=== PATIENT | female | born 1995 | race Two or more races ===

== ENCOUNTER 2021-09-21 22:57 | Emergency (ER) | payer OTHER, SELFPAY ==
[2021-09-22 00:27] VITALS: BP 118/69; PULSE 97; RESP 22; TEMP 37.2; O2SAT 100; BMI 31.8
[2021-09-22] MEDS: Acetaminophen 325 MG TABLET 975 MG PO (00:32)
[2021-09-22 00:40] LABS: Basophils Percent Auto 0.2 % (0-2); Eosinophils Absolute Auto 0.1 X10*3/uL (0.0-0.4); Eosinophils Percent Auto 2.6 % (0-4); Hematocrit 33.2 % (37.0-47.0); Hemoglobin 10.8 g/dl (12.0-16.0); Imm Gran Abs Auto 0.02 X10*3/uL (0.00-0.03); Imm Gran Pct Auto 0.4 % (0.0-0.4); Lymphocytes Absolute Auto 1.2 X10*3/uL (1.2-4.9); MANUAL DIFF FLAG NO; Mean Corpuscular HGB Conc 32.5 g/dl (31.0-35.0); Mean Corpuscular Volume 73.8 fL (80.0-98.0); Mean Platelet Volume 8.5 fL (9.4-12.3); Monocytes Absolute Auto 0.6 X10*3/uL (0.1-1.2); Monocytes Percent Auto 10.1 % (2-11); Neutrophils Absolute Auto 3.5 x10*3/uL (2.0-8.3); Neutrophils Percent Auto 64.7 % (45-73); Platelet Count 261 X10*3/uL (160-400); White Blood Count 5.5 X10*3/uL (4.8-10.8)
[2021-09-22 01:01] LABS: Alanine Aminotransferase 16 U/L (0-31); Albumin Level 3.8 g/dL (3.5-5.0); Alkaline Phosphatase 80 U/L (39-117); Anion Gap 11 (12-20); Aspartate Amino Transferase 24 U/L (5-31); Bilirubin Total 0.2 mg/dL (0.0-1.0); Blood Urea Nitrogen 8 mg/dL (9-16); Calcium 8.9 mg/dL (8.4-10.2); Carbon Dioxide 23 mmol/L (22-29); Chloride 107 mmol/L (96-108); Creatinine Clr Calc Pharmacy 121.6; Estimated Glomerular Filt Rate > 60; Glucose Random 97 mg/dL (60-115); Sodium 137 mmol/L (135-145); Total Protein 7.1 g/dL (6.5-8.0)
[2021-09-22 02:29] VITALS: BP 116/77; PULSE 104; RESP 20; TEMP 36.9; O2SAT 99
--- NOTE | 2021-09-22 04:02 | ED.DENTAL ---
HPI - Dental/Oral General Chief complaint: Dental/Oral Stated complaint: Headache/Earache Time Seen by Provider: 09/22/21 03:00 Source: patient Mode of arrival: ambulatory History of Present Illness HPI Narrative: 26-year-old female, 10 weeks who presents with left upper and lower dental caries with infection and was recently seen at the Dental ER yesterday and was started on amoxicillin. However, patient states that she continues to have significant pain which she has been unable to control with [id number] Tylenol. Teeth map: 1. 2. Related Data Allergies Allergy/AdvReac Type Severity Reaction Status Date / Time No Known Allergies Allergy Verified 09/22/21 00:25 Review of Systems Review of Systems: Pertinent positives and negatives as stated in HPI 10 point review of systems is otherwise negative. PMFSH Past Medical History Source: nursing notes reviewed Social History Social History Advance Directives: No Advance Directives Information Provided: No Physical Exam Vital Signs: Vital Signs: Last Vital Signs Temp 98.4 F 09/22/21 02:29 Pulse 104 H 09/22/21 02:29 Resp 20 09/22/21 02:29 BP 116/77 09/22/21 02:29 Pulse Ox 99 09/22/21 02:29 O2 Del Method 09/22/21 02:29 BMI result Body Mass Index 31.8 VITAL SIGNS: Reviewed. GENERAL: Well developed, well nourished, in no acute distress. HEAD: Normocephalic/atraumatic EYES: PERRLA, EOMI EARS: Ext canals without abnormality OROPHARYNX: no oral lesions noted, posterior pharynx clear, dental caries noted mild swelling at the left lower angle of the jaw without over riding erythema or induration, no trismus NECK: Supple, no adenopathy LUNGS: Normal breath sounds. No adventitious sounds or accessory muscle use. SpO2<99> CARDIOVASCULAR: Regular rate and rhythm without noted murmurs ABDOMEN: Soft, non-tender, non-distended with bowel sounds. NEUROLOGIC: Alert and oriented x 4. Strength and sensation to light touch were grossly intact x 4. Course Course Course Narrative: 26-year-old female with history and clinical presentation consistent with dental infection and pain. Placed in the infra and superior alveolar block with significant 6 acid patient is currently with good pain control, encouraged to continue with her antibiotics and discharged home in stable condition. MDM - Dental/Oral Lab Data Result diagrams: 09/22/21 00:34 09/22/21 00:34 Labs: Lab Results 09/22/21 09/22/21 Range/Units 00:34 00:34 WBC 5.5 (4.8-10.8) X10*3/uL RBC 4.50 (4.20-5.50) X10*6/uL Hgb 10.8 L (12.0-16.0) g/dl Hct 33.2 L (37.0-47.0) % MCV 73.8 L (80.0-98.0) fL MCH 24.0 L (27.0-33.0) pg MCHC 32.5 (31.0-35.0) g/dl RDW 17.0 H (11.0-16.0) % Plt Count 261 (160-400) X10*3/uL MPV 8.5 L (9.4-12.3) fL Immature Gran % (Auto) 0.4 (0.0-0.4) % Neut % (Auto) 64.7 (45-73) % Lymph % (Auto) 22.0 (20-40) % [place] % (Auto) 10.1 (2-11) % Eos % (Auto) 2.6 (0-4) % Baso % (Auto) 0.2 (0-2) % Lymph # (Auto) 1.2 (1.2-4.9) X10*3/uL [place] # (Auto) 0.6 (0.1-1.2) X10*3/uL Eos # (Auto) 0.1 (0.0-0.4) X10*3/uL Baso # (Auto) 0.0 (0.0-0.2) X10*3/uL Abs Immat Gran (auto) 0.02 (0.00-0.03) X10*3/uL Absolute Neuts (auto) 3.5 (2.0-8.3) x10*3/uL Absolute Nucleated RBC 0.000 (0.0-0.012) X10*3/uL Nucleated RBC % (auto) 0.0 (0.0-0.2) /100WBC Sodium 137 (135-145) mmol/L Potassium 4.0 (3.3-5.1) mmol/L Chloride 107 (96-108) mmol/L Carbon Dioxide 23 (22-29) mmol/L Anion Gap 11 L (12-20) BUN 8 L (9-16) mg/dL Creatinine 0.67 (0.5-1.4) mg/dL Estim Creat Clear Calc 121.6 Estimated GFR > 60 Random Glucose 97 (60-115) mg/dL Calcium 8.9 (8.4-10.2) mg/dL Total Bilirubin 0.2 (0.0-1.0) mg/dL AST 24 (5-31) U/L ALT 16 (0-31) U/L Alkaline Phosphatase 80 (39-117) U/L Total Protein 7.1 (6.5-8.0) g/dL Albumin 3.8 (3.5-5.0) g/dL Beta HCG, Quant [id number] mIU/mL Procedures Nerve Block Nerve Block 1: Time out performed: No Local Anesthetic: bupivacaine 0.25% Amount of anesthesia used (mL): 1 Side: left Nerve Blocks: other Intraoral Nerve Block: superior alveolar Procedure Successful: Yes Patient Tolerated Procedure: well Complications: none Nerve Block 2: Time out performed: No Local Anesthetic: bupivacaine 0.25% Amount of anesthesia used (mL): 1 Side: left Intraoral Nerve Block: inferior alveolar Procedure Successful: Yes Patient Tolerated Procedure: well Complications: none Discharge Plan Discharge Clinical Impression: Toothache, Dental caries, Dental infection Patient Disposition: Home, Self-Care Instructions: Dental Abscess (ED), Toothache (ED) Additional Instructions: 1. Resume all home medications as prescribed, to include vitamins. 2. Tylenol 1000 mg, orally, every 6 hours as needed for pain control. Do not exceed 4000 mg within 24 hours. 3. Complete the entire course of antibiotics as prescribed. 4. Additionally, consider using ice packs to unexposed skin for additional symptom relief. Return to the ER for worsening symptoms.
[2021-09-22 04:15] VITALS: BP 120/70; PULSE 99; RESP 14; TEMP 36.8; O2SAT 98
== END 2021-09-22 04:21 | disposition home or self-care (01) ==
PROVIDERS: Emergency Provider Student in an Organized Health Care Education/Training Program
DX: O26.91 Pregnancy related conditions, unspecified, first trimester (principal); K02.9 Dental caries, unspecified; Z3A.10 10 weeks gestation of pregnancy
CPT/HCPCS: 36415; 80053; 84702; 85025; 99284

== ENCOUNTER 2023-08-02 13:24 | Emergency (ER) | payer SELFPAY ==
[2023-08-02 13:27] VITALS: BP 126/88; PULSE 109; RESP 19; TEMP 36.6; O2SAT 98; BMI 30.7
--- NOTE | 2023-08-02 13:29 | ED_ITS ---
HPI - Dental/Oral General Chief complaint: General Medical Stated complaint: face swelling Time Seen by Provider: 08/02/23 20:50 Source: patient, RN notes reviewed and old records reviewed Mode of arrival: ambulatory Limitations: no limitations History of Present Illness HPI Narrative: 28-year-old female who denies any past medical history presents for evaluation of left lower facial swelling. Patient reports symptoms started 2 days ago. She went to the dentist yesterday and was told that she had an infection. She was started on amoxicillin She reports that she has not taken 4 doses and her symptoms seem worse She reports worsening left lower facial swelling She reports pain to the area Denies any fevers, chills, cough, shortness of breath No difficulty breathing or swallowing She denies any neck pain or swelling The patient notes that she is currently Related Data Previous Rx's ?Medication ?Instructions ?Recorded amoxicillin 875 mg-potassium 1 tab PO BID #14 tabs 08/02/23 clavulanate 125 mg tablet Allergies Allergy/AdvReac Type Severity Reaction Status Date / Time No Known Allergies Allergy Verified 08/02/23 13:29 Review of Systems 2 Constitutional: Constitutional: Denies body ache(s), Denies chills and Denies fever(s) Eyes: Eyes: Denies blurry vision ENT: Reports mouth pain, Denies sore throat and Denies throat swelling Cardiovascular: Cardiovascular: Denies chest pain and Denies dyspnea Respiratory: Respiratory: Denies cough and Denies dyspnea Gastrointestinal: Gastrointestinal: Denies abdominal pain, Denies nausea and Denies vomiting Musculoskeletal: Musculoskeletal: Denies back pain Integumentary/Breasts: Skin/Breast: Denies rash Allergic/Immunologic: Allergic/Immunologic: Denies throat swelling [facility] Social History Social History Advance Directives: No Advance Directives Information Provided: No Physical Exam 2 Vital Signs: Vital Signs: Last Vital Signs Temp 98.3 F 08/02/23 21:44 Pulse 99 08/02/23 21:44 Resp 17 08/02/23 21:44 BP 111/73 08/02/23 21:44 Pulse Ox 99 08/02/23 21:44 O2 Del Method Room Air 08/02/23 21:44 BMI result Body Mass Index 30.7 Const: General: healthy appearing, comfortable, no acute distress, alert and awake Nutritional Appearance: well nourished Orientation/consciousness: p atient oriented x3 HEENT: Other: There is left lower facial edema. There is no significant erythema to the skin. The 1st left lower molar had some gingival erythema and a small area of fluctuance to the gingiva. No retropharyngeal edema Head: Yes normocephalic and Yes atraumatic Eyes: Eyelids: Yes eyelids normal Conjunctivae: conjunctivae normal S clerae: sclerae normal Corneas: corneas normal Pupils: Equal, round and reactive pupils present EOM: EOMs intact bilaterally Neck: Neck: Yes full ROM Resp: Effort & Inspection: normal respiratory effort, able to speak in complete sentences and not labored GI: Inspection: No distended Palpation (GI): Soft to palpation, not firm, nontender, no guarding and not rigid Skin: General skin exam: elasticity normal Neuro: General: patient oriented x3 Cranial nerves: Yes Equal, round and reactive pupils present and Yes Bilaterally intact EOM present Cognition (Neuro): normal cognition Course Course Course Narrative: This is a rapid medical exam. Deferred additional HPI, ROS, PE to primary provider. 28yo female with no known medical history here with left lower facial swelling/dental pain despite taking 3 doses of amoxicillin. She feels it is worsening. May need CT imaging. will obtain labs. CAROL Hu APRN Medications Administered Discontinued Medications Generic Name Dose Route Start Last Admin Trade Name Freq PRN Reason Stop Dose Admin Acetaminophen 975 mg 08/02/23 16:05 08/02/23 16:07 Acetaminophen 325 Mg Tablet PO 08/02/23 16:06 975 mg ONCE ONE Administration Lidocaine HCl 2 ml 08/02/23 21:03 08/02/23 22:07 Lidocaine Hcl 1 % Mpf 2 Ml Vial INFILTRATI 08/02/23 21:04 2 ml ONCE ONE Administration Medical Decision Making Medical Decision Making [facility] Narrative: [age] old female presents for evaluation of facial swelling and dental pain. She has been on amoxicillin for 4 doses. She has what appears to be a very small dental abscess. Will attempt needle aspiration of this. He can transition the patient to Augmentin going forward. Differential Diagnosis Differential Diagnoses: The differential diagnosis associated with the presentation includes Facial swelling Dental abscess Dental infection Dental caries Lab Data 08/02/23 13:49 08/02/23 13:49 Labs: Lab Results 08/02/23 Range/Units 13:49 WBC 10.3 (4.8-10.8) X10*3/uL RBC 4.59 (4.20-5.50) X10*6/uL Hgb 12.0 (12.0-16.0) g/dl Hct 36.5 L (37.0-47.0) % MCV 79.5 L (80.0-98.0) fL MCH 26.1 L (27.0-33.0) pg MCHC 32.9 (31.0-35.0) g/dl RDW 13.2 (11.0-16.0) % Plt Count 296 (160-400) X10*3/uL MPV 8.5 L (9.4-12.3) fL Immature Gran % (Auto) 0.3 (0.0-0.4) % Neut % (Auto) 77.9 H (45-73) % Lymph % (Auto) 13.6 L (20-40) % [place] % (Auto) 6.4 (2-11) % Eos % (Auto) 1.5 (0-4) % Baso % (Auto) 0.3 (0-2) % Lymph # (Auto) 1.4 (1.2-4.9) X10*3/uL [place] # (Auto) 0.7 (0.1-1.2) X10*3/uL Eos # (Auto) 0.2 (0.0-0.4) X10*3/uL Baso # (Auto) 0.0 (0.0-0.2) X10*3/uL Abs Immat Gran (auto) 0.03 (0.00-0.03) X10*3/uL Absolute Neuts (auto) 8.1 (2.0-8.3) x10*3/uL Absolute Nucleated RBC 0.000 (0.0-0.012) X10*3/uL Nucleated RBC % (auto) 0.0 (0.0-0.2) /100WBC Sodium 137 (135-145) mmol/L Potassium 4.1 (3.3-5.1) mmol/L Chloride 103 (96-108) mmol/L Carbon Dioxide 24 (22-29) mmol/L Anion Gap 14 (12-20) BUN 9 (9-16) mg/dL Creatinine 0.77 (0.5-1.4) mg/dL Estim Creat Clear Calc 102.1 Estimated GFR > 60 Random Glucose 81 (60-115) mg/dL Calcium 8.8 (8.4-10.2) mg/dL Beta HCG, Quant < 2 mIU/mL Procedures Abscess I/D Site: other (Left lower dental) Side (if applicable): left Local Anesthetic: lidocaine 1% Amount of anesthesia used (mL): 1 Technique: needle aspiration Amount of fluid expressed (mL): 0.5 Sent for culture/gram staining?: No Discharge Plan Discharge Clinical Impression: Left facial swelling, Dental infection Patient Disposition: Home, Self-Care Instructions: Dental Abscess (ED) Additional Instructions: Apply warm compresses to the swollen area every 2 hours for 10 minutes. Stop taking the amoxicillin and take Augmentin twice daily for 1 week Follow-up with your dentist Prescriptions: New amoxicillin-pot clavulanate 875-125 mg tablet 1 tab PO BID Qty: 14 0RF Print Language: Maltese
[2023-08-02 13:54] LABS: MANUAL DIFF FLAG NO
[2023-08-02 13:55] LABS: Basophils Percent Auto 0.3 % (0-2); Eosinophils Absolute Auto 0.2 X10*3/uL (0.0-0.4); Eosinophils Percent Auto 1.5 % (0-4); Hematocrit 36.5 % (37.0-47.0); Imm Gran Abs Auto 0.03 X10*3/uL (0.00-0.03); Imm Gran Pct Auto 0.3 % (0.0-0.4); Lymphocytes Absolute Auto 1.4 X10*3/uL (1.2-4.9); Lymphocytes Percent Auto 13.6 % (20-40); Mean Corpuscular HGB Conc 32.9 g/dl (31.0-35.0); Mean Corpuscular Hemoglobin 26.1 pg (27.0-33.0); Mean Corpuscular Volume 79.5 fL (80.0-98.0); Mean Platelet Volume 8.5 fL (9.4-12.3); Monocytes Absolute Auto 0.7 X10*3/uL (0.1-1.2); Monocytes Percent Auto 6.4 % (2-11); Neutrophils Absolute Auto 8.1 x10*3/uL (2.0-8.3); Neutrophils Percent Auto 77.9 % (45-73); Platelet Count 296 X10*3/uL (160-400); Red Blood Count 4.59 X10*6/uL (4.20-5.50); Red Cell Distribution Width 13.2 % (11.0-16.0); White Blood Count 10.3 X10*3/uL (4.8-10.8)
[2023-08-02 14:28] LABS: Anion Gap 14 (12-20); Blood Urea Nitrogen 9 mg/dL (9-16); Calcium 8.8 mg/dL (8.4-10.2); Carbon Dioxide 24 mmol/L (22-29); Chloride 103 mmol/L (96-108); Creatinine Clr Calc Pharmacy 102.1; Estimated Glomerular Filt Rate > 60; Glucose Random 81 mg/dL (60-115); Potassium 4.1 mmol/L (3.3-5.1); Sodium 137 mmol/L (135-145)
[2023-08-02 14:32] LABS: HCG Quantitative < 2 mIU/mL
[2023-08-02 16:05] VITALS: BP 125/67; PULSE 108; RESP 20; TEMP 37.2; O2SAT 98
[2023-08-02] MEDS: Acetaminophen 325 MG TABLET 975 MG PO (16:07)
[2023-08-02 21:44] VITALS: BP 111/73; PULSE 99; RESP 17; TEMP 36.8; O2SAT 99
[2023-08-02] MEDS: Lidocaine HCl 1 % MPF 2 ML VIAL INFILTRATI (22:07)
[2023-08-02] MEDS: Amoxicillin/Potassium Clav 875 MG TABLET PO (22:23)
[2023-08-02 22:31] VITALS: BP 111/73; PULSE 99; RESP 17; TEMP 36.8; O2SAT 99
== END 2023-08-02 22:31 | disposition home or self-care (01) ==
PROVIDERS: Nurse Practitioner Family; Emergency Provider Internal Medicine
DX: K04.7 Periapical abscess without sinus (principal); K08.89 Other specified disorders of teeth and supporting structures; L53.8 Other specified erythematous conditions
CPT/HCPCS: 36415; 41800; 80048; 84702; 85025; 99283; 99284

== ENCOUNTER 2024-09-27 10:11 | Emergency (ER) | payer MEDICAID, SELFPAY ==
--- NOTE | ~2024-09-27 | CT_ITS ---
EXAMINATION: CT ABDOMEN AND PELVIS WITH CONTRAST CLINICAL INFORMATION: Severe rectal pain COMPARISON: None available. TECHNIQUE: Multidetector volumetric images were obtained from the superior aspect of the liver through the pubic symphysis following administration 85 mL of Omnipaque 350 intravenous contrast. Sagittal and coronal reformatted images were obtained on the technologist's workstation. Oral contrast: No This CT examination was performed using dose optimization techniques as appropriate, variously including the following: *Automated exposure control *Adjustment of mA and/or kV according to patient size (this includes techniques or standardized protocols for targeted exams where dose is matched to indication/reason for exam; i.e. extremities or head) *Use of iterative reconstruction technique DLP: 666 mGy centimeter. FINDINGS: LUNG BASES: No acute airspace disease. LIVER, GALLBLADDER, AND BILIARY TREE: Liver measures 18 cm. Focal fatty infiltration adjacent to the falciform ligament. Portal veins, hepatic veins and intrahepatic portion of the IVC are patent. Gallbladder is contracted. No pericholecystic fluid collection or gallbladder wall thickening. No intrahepatic or extrahepatic biliary ductal dilatation. PANCREAS: No focal mass. No peripancreatic fluid collection. No main pancreatic ductal dilatation. SPLEEN: 10 cm. No focal mass. ADRENAL GLANDS: No nodular lesions. KIDNEYS AND URETERS: No hydronephrosis. No gross nephrolithiasis. No focal mass. Normal enhancement pattern of the renal parenchyma.. BLADDER: Fluid-filled. GASTROINTESTINAL TRACT: There is some intestinal wall thickening involving mostly the large intestine and to a lesser extent segmental loops of small bowel with gas and fluid-filled mildly prominent proximal small bowel loops. No pneumatosis intestinalis. Appendix is normal. No fluid collections, peritoneal cavity. No pneumoperitoneum. No ascites. No intestinal obstruction pattern. ABDOMINAL WALL: Fat-containing umbilical hernia, small with diastases abdominal rectus muscles in the periumbilical region. LYMPH NODES: Prominent mesenteric and retroperitoneum. VASCULAR: No aneurysm or dissection, abdominal aorta. PELVIC VISCERA: 3 cm fluid density lesion right adnexa. OSSEOUS STRUCTURES: No acute fracture or listhesis. Spondylosis L5-S1. Spina bifida occulta S1. Probable bony island in the sacrum. CT/CT abdomen pelvis w IV con IMPRESSION: Concerning enterocolitis without intestinal obstruction pattern. Inflammatory bowel disease cannot be entirely excluded. Hepatomegaly. Fat-containing hernia. 3 cm cystic lesion, right adnexa. Fleischner guidelines were followed. Electronically signed by: Alphonso Rene MD 09/27/2024 02:34 PM EDT RP
[2024-09-27 10:25] VITALS: BP 116/80; PULSE 118; RESP 16; TEMP 36; O2SAT 99; BMI 24.9
[2024-09-27 11:06] LABS: Hematocrit 34.7 % (37.0-47.0); Hemoglobin 10.2 g/dl (12.0-16.0); Mean Corpuscular HGB Conc 29.4 g/dl (31.0-35.0); Mean Corpuscular Hemoglobin 19.8 pg (27.0-33.0); Mean Corpuscular Volume 67.2 fL (80.0-98.0); NRBC Abs Auto 0.000 X10*3/uL (0.0-0.012); NRBC Pct Auto 0.0 /100WBC (0.0-0.2); Platelet Count 425 X10*3/uL (160-400); Red Blood Count 5.16 X10*6/uL (4.20-5.50); White Blood Count 8.2 X10*3/uL (4.8-10.8)
[2024-09-27 11:20] LABS: Alanine Aminotransferase 8 U/L (0-31); Albumin Level 4.2 g/dL (3.5-5.0); Alkaline Phosphatase 104 U/L (39-117); Anion Gap 13 (12-20); Aspartate Amino Transferase 22 U/L (5-31); Blood Urea Nitrogen 12 mg/dL (9-16); Calcium 9.8 mg/dL (8.4-10.2); Carbon Dioxide 25 mmol/L (22-29); Chloride 103 mmol/L (96-108); Creatinine Clr Calc Pharmacy 85.4; Estimated Glomerular Filt Rate > 60; Magnesium 2.2 mg/dL (1.6-2.6); Potassium 4.4 mmol/L (3.3-5.1); Sodium 137 mmol/L (135-145); Total Protein 8.4 g/dL (6.5-8.0)
[2024-09-27 11:32] LABS: Band Neutrophils Percent 9 % (3-5); Lymphocytes Absolute Manual 1.5 X10*3/uL (1.2-4.9); Lymphocytes Percent Manual 18 % (20-40); Monocytes Absolute Manual 0.4 X10*3/uL (0.1-1.2); Monocytes Percent Manual 5 % (2-11); Neutrophils Absolute Manual 6.3 X10*3/uL (2.0-8.3); Neutrophils Percent Manual 68 % (45-73)
[2024-09-27 11:33] LABS: Acanthocytes 1+ (0-2) /OIF; Microcytosis 1+ (5-14) /OIF; Ovalocytes 1+ (5-14) /OIF; RBC Morphology NOTED
[2024-09-27 11:38] LABS: Dohle Bodies PRESENT
--- NOTE | 2024-09-27 11:56 | ED_ITS ---
HPI - General Adult General Chief complaint: General Medical Stated complaint: rectum pain Time Seen by Provider: 09/27/24 13:01 Source: patient and family Mode of arrival: ambulatory Limitations: no limitations History of Present Illness ED Provider: YAZMIN MUKHERJEE narrative: 29 yo female who notes she has not had a formed stool in about 8 months she was just treated with levofloxacin for + E. Coli colitis at [facility] [place] on 09/09-09/11. She states she has been told by her PCP possible IBD though no prior colonoscopy she has an emergent colonoscopy this . She has known hemorrhoids and has intermittent rectal bleeding that has no changed. She has no fevers but came to our ED today with c/o severe rectal pain with bowel movements. She notes she always has loose stools. She feels like there are razors in her rectum and it goes down her left leg. preparation H is not helping MD complaint: rectal pain Onset (ago): week(s) (1) Location: buttocks Radiation: non-radiation Severity: severe Quality: stabbing Pain Consistency: intermittent Relieving factors: none Exacerbating factors: other (bowel movement) Associated symptoms: denies other symptoms Treatments prior to arrival: none Related Data Previous Rx's ?Medication ?Instructions ?Recorded amoxicillin 875 mg-potassium 1 tab PO BID #14 tabs clavulanate 125 mg tablet levofloxacin 750 mg tablet 750 mg PO DAILY #7 tabs lidocaine HCl 2 % mucosal jelly 1 appl topical BID PRN pain #30 mL 09/27/24 lorazepam 0.5 mg tablet (Ativan) 0.5 mg PO BID PRN spa sm #7 tabs 09/27/24 metronidazole 500 mg tablet 500 mg PO BID 7 days #14 t abs 09/27/24 Allergies Allergy/AdvReac Type Severity Reaction Status Date / Time No Known Allergies Allergy Verified 09/27/24 10:28 Review of Systems 2 Review of Systems: Constitutional : No Weight loss, No Fever, No Chills ENT/Mouth : No sore throat, No Rhinorrhea Eyes: No Swelling, No Redness Cardiovascular : No Chest Pain, No SOB, NoEdema Respiratory : No Cough, No Sputum, No Wheezing Gastrointestinal : Positive Nausea, no Vomiting, positive Diarrhea, positive abdominal Pain, No Hematochezia, No Melena Genitourinary : No Dysuria, No Urinary Frequency, No Hematuria, No Urgency Musculoskeletal : No joint pain, No Myalgias, No Joint Swelling Skin : No Skin Lesions, No rash Neuro : No Weakness, No Numbness, No Dizziness, No Headache All other systems reviewed and are negative. [facility] Past Medical History Attestation statement: The following information was validated with the patient. Source: old records reviewed Medical History (Updated 09/27/24 @ 15:57 by Delicia Richter DO) Colitis Social History Social History (Updated 09/27/24 @ 14:05 by Delicia Richter DO) Patient Tobacco Use Status: Never used Tobacco Smoked in Last 30 Days: No Use of substances other than those prescribed or required for medical reasons: No Advance Directives: No Advance Directives Information Provided: Yes Do you have a plan to hurt others: No Plan Patient : Yes Physical Exam ED Vital Signs: Vital Signs - 24 hr 09/27/24 10:25 09/27/24 13:29 Temperature 96.8 F Pulse Rate 118 H 113 H Respiratory Rate 16 16 Blood Pressure 116/80 109/69 Pulse Oximetry 99 99 Oxygen Delivery Method Room Air Room Air BMI result Body Mass Index 24.9 Appearance: Alert. Oriented X3. No acute distress. Eyes: Pupils equal, round and reactive to light. ENT: Pharynx normal. Neck: Normal inspection. Neck supple. CVS: Normal heart rate and rhythm. Pulses normal. Respiratory: No respiratory distress. Breath sounds normal. Abdomen: Soft and nontender. Rectal: very tight sphincter - ext non thrombosed bleeding hemorrhoids very ttp no friable mucosa or redness. Skin: Skin warm and dry. Normal skin color. Extremities: No lower extremity edema. Neuro: Oriented X 3. No motor deficit. No sensory deficit. CN2-12 intact Course Course Course Narrative: This is a Rapid Medical Examination (RME) performed by Kj Albright PA-C in triage. Full HPI, ROS, assessment and treatment plan per primary provider in the Main ED. Hx: 29 yo F here for evacl of diarrhea w/ blood since March. hx of internal and exertnal hemorrrhoids, having inc rectal pain w/ BMs. afraied to pass BMs d/t this. [facility] Plan: labs, OBS Medications Administered Discontinued Medications Generic Name Dose Route Start Last Admin Trade Name Freq PRN Reason Stop Dose Admin Acetaminophen 650 mg 09/27/24 10:30 09/27/24 10:34 Acetaminophen 325 Mg Tablet PO 09/27/24 10:31 650 mg ONCE ONE Administration Iohexol 100 ml 09/27/24 14:20 09/27/24 14:20 Iohexol 350 Mg/Ml 100 Ml Infus..Btl IV 09/27/24 14:21 85 ml ONCE ONE Administration Lorazepam 1 mg 09/27/24 13:29 09/27/24 14:07 Lorazepam 1 Mg Tablet PO 09/27/24 13:30 1 mg ONCE ONE Administration Medical Decision Making Medical Decision Making MDM Narrative: 29 yo female with recent E. Coli colitis s/p levofloxacin end of August schedule for colonoscopy this . At this time the patient now c/o severe rectal pain - no abscess noted. At this time the patient will need ativan and CT scan for perirectal mass, fissure is also possible, mass. Differential Diagnosis Differential Diagnoses: The differential diagnosis associated with the presentation includes fissure, spasm, mass Admission/Observation Consideration of admission/observation: Escalation of care including admission/observation considered spoke to budget consultant Dr. Hsu patient has no abdominal pain on exam does have some bands and persistent enterocolitis - at this time she is going to notify her GI doctor tomorrow and Dr. Hsu recommends levofloxacin and flagyl. Patient is aware I spoke to her and her mother about this. Consult Healthcare Provider Management of the patient was discussed with: Commonwealth Attorney Dr. Hsu Lab Data [facility] Lab Attestation statement: I reviewed the patient's lab results. CRP elevated, no wbc count, has some anemia - patient has a bandemia as well noted on CBC 09/27/24 10:59 09/27/24 10:59 Labs: Lab Results 09/27/24 09/27/24 Range/Units 10:59 13:37 WBC 8.2 (4.8-10.8) X10*3/uL RBC 5.16 (4.20-5.50) X10*6/uL Hgb 10.2 L (12.0-16.0) g/dl Hct 34.7 L (37.0-47.0) % MCV 67.2 L (80.0-98.0) fL MCH 19.8 L (27.0-33.0) pg MCHC 29.4 L (31.0-35.0) g/dl RDW 18.4 H (11.0-16.0) % Plt Count 425 H D (160-400) X10*3/uL MPV 8.5 L (9.4-12.3) fL Immature Gran % (Auto) Cancelled Neut % (Auto) Cancelled Lymph % (Auto) Cancelled [place] % (Auto) Cancelled Eos % (Auto) Cancelled Baso % (Auto) Cancelled Lymph # (Auto) Cancelled [place] # (Auto) Cancelled Eos # (Auto) Cancelled Baso # (Auto) Cancelled Abs Immat Gran (auto) Cancelled Absolute Neuts (auto) Cancelled Absolute Nucleated RBC 0.000 (0.0-0.012) X10*3/uL Nucleated RBC % (auto) 0.0 (0.0-0.2) /100WBC Neutrophils % (Manual) 68 (45-73) % Band Neutrophils % 9 H (3-5) % Lymphocytes % (Manual) 18 L (20-40) % Monocytes % (Manual) 5 (2-11) % Abs Neuts (Manual) 6.3 (2.0-8.3) X10*3/uL Lymphocytes # (Manual) 1.5 (1.2-4.9) X10*3/uL Monocytes # (Manual) 0.4 (0.1-1.2) X10*3/uL Dohle Bodies PRESENT Platelet Estimate SLIGHTLY INCREASED (NORMAL) Plt Morphology Comment NORM RBC Morphology NOTED Microcytosis 1+ (5-14) /OIF Ovalocytes 1+ (5-14) /OIF Acanthocytes (Spur) 1+ (0-2) /OIF Sodium 137 (135-145) mmol/L Potassium 4.4 (3.3-5.1) mmol/L Chloride 103 (96-108) mmol/L Carbon Dioxide 25 (22-29) mmol/L Anion Gap 13 (12-20) BUN 12 (9-16) mg/dL Creatinine 0.89 (0.5-1.4) mg/dL Estim Creat Clear Calc 85.4 Estimated GFR > 60 Random Glucose 92 (60-115) mg/dL Calcium 9.8 D (8.4-10.2) mg/dL Magnesium 2.2 (1.6-2.6) mg/dL Total Bilirubin 0.2 (0.0-1.0) mg/dL AST 22 (5-31) U/L ALT 8 (0-31) U/L Alkaline Phosphatase 104 (39-117) U/L C-Reactive Protein 9.28 H (< or = 0.50) mg/dL Total Protein 8.4 H (6.5-8.0) g/dL Albumin 4.2 (3.5-5.0) g/dL Beta HCG, Quant < 2 mIU/mL Stool Occult Blood POSITIVE (NEGATIVE) Independent Interpretation I performed an independent interpretation of an: CT Scan (enterocolitis) Radiology Impression Discussion of test interpretation with radiology: I have reviewed the radiologist's reading. Independent Historian Clinical information obtained from an independent historian. History obtained from or confirmed by: Parent External Record Review External record reviewed: Outpatient record Prescription Management I considered prescription management with: Antibiotic and Other Discharge Plan Discharge Clinical Impression: Pain, rectal, Pancolitis Patient Disposition: Home, Self-Care Instructions: Colitis (ED), Rectal Pain (ED) Additional Instructions: your CT scan shows active colon and small bowel inflammation please call your GI doctor to let them know please take all antibiotics with food and finish course do not take the ativan when you are doing your colonscopy prep do not drink alcohol with antibiotics do not do any heavy lifting or exercise. Prescriptions: New levofloxacin 750 mg tablet 750 mg PO DAILY Qty: 7 0RF metronidazole 500 mg tablet 500 mg PO BID 7 Days Qty: 14 0RF lidocaine HCl 2 % jelly 1 appl topical BID PRN (Reason: pain) Qty: 30 0RF lorazepam [Ativan] 0.5 mg tablet 0.5 mg PO BID PRN (Reason: spasm) Qty: 7 0RF No Action amoxicillin-pot clavulanate 875-125 mg tablet 1 tab PO BID Qty: 14 0RF Print Language: Estonian
[2024-09-27 13:29] VITALS: BP 109/69; PULSE 113; RESP 16; O2SAT 99
[2024-09-27 13:53] LABS: OBS Int Ctl Valid YES; OBS1 POSITIVE (NEGATIVE)
[2024-09-27] MEDS: iohexoL 350 MG/ML 100 ML INFUS..BTL IV (14:20)
--- OUTSIDE RECORDS SUMMARY | 2024-09-27 15:30 | XMS_ITS | Clinical Summary ---
Author Organization [facility] Address [address] [place] [address] Care Team Providers Care Gauge Maker Apprentice Name Role Phone Stephanie Medina DO Primary Care P rovider Social History Tobacco Use Types Packs/Day Years Used Date Smoking Tobacco: Never Assessed Sex and Gender Information Value Date Recorded Sex Assigned at Not on file Gender Identity Not on file Sexual Orientation Not on file Job Start Date Occupation Industry Not on file Not on file Not on file Plan of Treatment Health Maintenance Due Date Last Done Comments Hepatitis B Vaccines (1 of 3 - 3-dose series) 1993 Hepatitis C Screening 1993 COVID-19 Vaccine (#1) 1993 Depression Screening 2005 Preventative Health Evaluation 2011 DTap / Tdap / Td (1 - Tdap) 2012 Cervical Cancer Screening (P ap Smear) 2014 Influenza Vaccine (#1) 2024 Pneumococcal Vaccine Aged Out No long er eligible based on patient's age to complete this topic RSV Ped < 20 months Aged Out No longe r eligible based on patient's age to complete this topic Care Teams Gauge Maker Apprentice Relationship Specialty Start Date End Date Stephanie Medina DO PCP - General General Farm Manager 06/22/20
[2024-09-27 16:47] VITALS: BP 109/69; PULSE 100; RESP 16; TEMP 37.1; O2SAT 99
== END 2024-09-27 16:47 | disposition home or self-care (01) ==
PROVIDERS: Physician Assistant Medical; Emergency Provider Emergency Medicine; PCP Internal Medicine
DX: K52.9 Noninfective gastroenteritis and colitis, unspecified (principal); K62.89 Other specified diseases of anus and rectum
CPT/HCPCS: 36415; 74177; 80053; 82272; 83735; 84702; 85007; 85027; 86140; 99284; Q9967

== ENCOUNTER → 2024-09-27 13:29 | Outpatient (BNV) | payer MEDICAID, SELFPAY | PROVIDERS: Emergency Provider Emergency Medicine; PCP Internal Medicine; Visit Provider Radiology Diagnostic Radiology | DX: N83.291 Other ovarian cyst, right side (principal); K46.9 Unspecified abdominal hernia without obstruction or gangrene; R16.0 Hepatomegaly, not elsewhere classified | CPT/HCPCS: 74177 ==